=== PATIENT | female | born 2000 | race Hispanic/Latino ===

== ENCOUNTER 2024-11-27 12:50 | Emergency (ER) | payer OTHER, SELFPAY ==
[2024-11-27 13:00] VITALS: BP 128/78; PULSE 91; RESP 18; TEMP 37.5; O2SAT 100
--- NOTE | 2024-11-27 13:19 | ED.DIZZY ---
HPI - Dizziness General Chief Complaint: Dizziness Stated Complaint: Dizzy / Head pressure Time Seen by Provider: 11/27/24 13:00 Source: patient and RN notes reviewed Mode of arrival: ambulatory Limitations: no limitations History of Present Illness HPI Narrative: 24-year-old female presents Express Care complaining of sinus congestion for approximately 11 days. Patient reports a headache, sinus pressure, postnasal drip, dry cough, and dizziness. Patient reports she feels dizzy especially when she is up moving or she turns her head too quickly. Patient denies any syncope, near syncope, chest pains, difficulty breathing,, nausea, vomiting, diarrhea, sore throat, earache, runny nose, or any other symptoms. Patient has not tried any [id number] herbal symptoms. Patient denies any significant past medical history. Related Data Home Medications ?Medication ?Instructions ?Recorded ?Confirmed ?Last Taken ?Type norgestimate 0.25 mg-ethinyl tablet 11/27/24 Unknown History estradiol 0.035 mg tablet (Stacy) Allergies Allergy/AdvReac Type Severity Reaction Status Date / Time No Known Allergies Allergy Mild Verified 11/27/24 12:53 Review of Systems Review of Systems: CONSTITUTIONAL: Denies fever, chills, or sweats. EYES: Denies visual changes, redness, or discharge. ENT: Denies rhinorrhea, sore throat, or otalgia. Positive for congestion, sinus pressure. CARDIOVASCULAR: Denies chest pain, palpitations, lightheadedness, near-syncope, or edema. Positive for dizziness RESPIRATORY: Positive cough. Negative for wheezing, or Dyspnea. GASTROINTESTINAL: Denies abdominal pain, nausea, vomiting, or diarrhea. GENITOURINARY: Denies dysuria or hematuria. SKIN: Denies rash or itching. MUSCULOSKELETAL: Denies back pain, joint pain, or myalgia. NEUROLOGIC: Denies headache, numbness, loss of consciousness, focal weakness, slurred speech, facial droop, or weakness. PSYCHIATRIC: Denies anxiety or depression. All other systems reviewed are negative, except as documented in HPI. PMFSH Comments At the time of my signature, I reviewed and agree with the nursing past medical, surgical, social, and family history. There is no relevant family history pertinent to the patient complaint. Exam Narrative: GENERAL: This is a well-nourished, well-developed adult, in no apparent distress. They are non ill-appearing, nontoxic appearing. HEAD: normocephalic, atraumatic. EYES: Sclera clear/white. Conjunctiva normal. Vision is grossly intact. Extraocular movements intact. Pupils PERRLA. No nystagmus. EARS: External ears normal, auditory canals clear and without drainage, TMs normal without perforation. Hearing grossly intact. NOSE: External nose normal with no obvious nasal discharge, nasal turbinates erythematous bilaterally with exudate, no rhinorrhea. Sinus tenderness to palpation to frontal and maxillary sinuses. THROAT: Mucous membranes moist, posterior pharynx clear, without erythema or swelling. Uvula midline. Postnasal drip present. NECK: Neck supple, non-tender without lymphadenopathy, masses or thyromegaly. CARDIOVASCULAR: Regular rate and rhythm without murmurs, gallops, or rubs. RESPIRATORY: Clear to auscultation. Breath sounds equal bilaterally. No wheezes, rales, or rhonchi. SKIN: warm, Dry, intact with no suspicious lesions or rash, good texture and turgor. NEURO: awake, alert, and oriented to person, place and time. There were no obvious focal neurologic abnormalities. Cranial nerves 2-12 grossly intact. No pronator drift. No slurred speech. No facial droop. EXTREMITIES: No joint tenderness, effusion, or edema noted. Course Course Emergency Course: Portions of this record may have been created with voice recognition software Level of Care: Express Care Visit Vital Signs Vital signs: Vital Signs Temperature 99.5 F 11/27/24 13:00 Pulse Rate 91 11/27/24 13:00 Respiratory Rate 18 11/27/24 13:00 Blood Pressure 128/78 11/27/24 13:00 Pulse Oximetry 100 11/27/24 13:00 Oxygen Delivery Room Air 11/27/24 13:00 Temperature 99.5 F 11/27/24 13:00 Pulse Rate 91 11/27/24 13:00 Respiratory Rate 18 11/27/24 13:00 Blood Pressure 128/78 11/27/24 13:00 Pulse Oximetry 100 11/27/24 13:00 Oxygen Delivery Room Air 11/27/24 13:00 Reviewed MDM - Dizziness MDM Narrative Medical decision making narrative: Given length of patient's symptoms is likely she has developed a bacterial sinusitis. Will treat her with Augmentin. Patient's symptoms likely or vertigo related to the sinus infection. Will prescribe meclizine as needed for dizziness. Discussed physical exam findings. Advised supportive measures and signs/symptoms to go to the ER. Pt is appropriate for outpt treatment and f/u. Differential Diagnosis Differential diagnosis: Likely other (Sinusitis, vertigo, dizziness, vestibular disorder, upper respiratory infection) Critical Care Time Critical Care Time Critical Care Time: No Discharge Plan Discharge Clinical Impression: Dizziness Sinusitis Qualifiers: Sinusitis location: unspecified location Chronicity: acute Recurrence: non-recurrent Qualified Code(s): J01.90 - Acute sinusitis, unspecified Patient Disposition: Home Condition: Stable Instructions: Antibiotic Form, Sinusitis (ED), Vertigo (ED) Additional Instructions: Take the antibiotics as directed and complete the course even if you start to feel better. You may use a Neti pot saline rinse 3 times a day with lukewarm distilled water Continue to take Tylenol or Motrin for pain. Follow the instructions on the bottle. Use a humidifier or vaporizer at night. Take meclizine as directed for dizziness. Drink plenty of water. 8-10 glasses per day. Use flonase 2 sprays each nostril per day for 5 days then as needed Take mucinex 2 times per day and be sure to take with 8oz of water. Follow up with Primary provider in 3-5 days Please go to the ER if he develops any difficulty breathing, uncontrollable dizziness, nausea, vomiting, severe headaches, vision changes, worsening symptoms, or any other concerns Patient Language: Slovenian Prescriptions: New amoxicillin-pot clavulanate 875-125 mg tablet 1 tablet PO Q12H 7 Days Qty: 14 0RF meclizine 25 mg tablet 25 mg PO TID PRN (Reason: dizziness) Qty: 20 0RF No Action norgestimate-ethinyl estradiol [Stacy] 0.25-0.035 mg tablet Follow-up/Referrals: PHYSICIAN,ROAD CROSSING GUARD [Primary Care Provider] - Stand Alone Forms: Work/School Release IP Time of Disposition: 13:18
== END 2024-11-27 13:20 | disposition home or self-care (01) ==
DX: R42 Dizziness and giddiness (principal); J01.90 Acute sinusitis, unspecified
CPT/HCPCS: 99203; G0463

== ENCOUNTER 2024-11-30 15:11 | Emergency (ER) | payer OTHER, SELFPAY ==
[2024-11-30] VITALS (11 sets, daily range): BP systolic 120–135; BP diastolic 84–88; PULSE 103–115; RESP 16–18; TEMP 36.4–36.6; O2SAT 100
--- NOTE | 2024-11-30 19:56 | ECG_ITS ---
Test Date: 2024-11-30 20:35:11 Measurements Intervals [place] Rate: 96 P: 19 OH: 148 QRS: 76 QRSD: 97 T: 21 QT: 353 QTc: 446 Interpretive Statements SINUS RHYTHM NONSPECIFIC T-WAVE ABNORMALITY- ANTERIOR LEADS BASELINE ARTIFACT- I, II, III, AVR, AVL, AVF, V1-V6 BORDERLINE ECG No previous ECG available for comparison Electronically Signed On 11-30-2024 21:04:50 CDT by Brett Kaba D.O.
--- NOTE | 2024-11-30 19:57 | ED_ITS ---
HPI - URI/Sore Throat General Chief Complaint: Upper Respiratory Infection Stated Complaint: head pressure, being treated sinus infection Time Seen by Provider: 11/30/24 19:38 History of Present Illness HPI Narrative: 24-year-old female with reported history of headaches presents to emergency department for headache and sinus infection for about 2 weeks. Patient states 2 weeks ago she began developing dizziness, head pressure, pain to her sinuses,and sinus congestion. On 11/27/2024 she presented to urgent care for her symptoms and was prescribed Augmentin for presumed sinusitis and meclizine. She states she has been taking Augmentin as prescribed and has had some improvement in her sinus congestion and pressure but her headache remains. She describes the headache as a pressure that is over the frontal aspect of her brain and sinuses and in the top of her head. She also is endorsing dizziness that is worse when she moves her head quickly and better when she is sitting still. She has not taken her meclizine. She denies fever, chest pain, shortness of breath, cough, sore throat, otalgia. Patient denies possibility of . Related Data Home Medications ?Medication ?Instructions ?Recorded ?Confirmed ?Last Taken ?Type norgestimate 0.25 mg-ethinyl tablet 11/27/24 Unknown History estradiol 0.035 mg tablet (Stacy) Allergies Allergy/AdvReac Type Severity Reaction Status Date / Time No Known Allergies Allergy Mild Verified 11/27/24 12:53 Review of Systems 2 Review of Systems: All systems reviewed & are unremarkable except as noted in HPI and below Exam 2 Narrative: GENERAL: Well-appearing, well-nourished, and in no acute distress. HEAD: Normocephalic, atraumatic. EYES: PERRLA and EOMI. ENT: Nares clear, no rhinorrhea or epistaxis. Mucous membranes moist. Mild tenderness over the bilateral maxillary and frontal sinuses with no overlying skin changes. Bilateral TMs with serous effusion, no erythema or bulging. Normal canals. Bilateral horizontal nystagmus NECK: Supple. CHEST: Clear to auscultation. No respiratory distress. HEART: Regular rate and rhythm. No murmur heard. Normal peripheral pulses. ABDOMEN: Soft, nontender, nondistended, normal active bowel sounds. EXTREMITIES: Normal range of motion. No edema. SKIN: Warm, dry, no rash. NEURO: No focal deficits. Alert and oriented x4. Cranial nerves 2-12 intact. Strength 5/5 in BUE and BLE. Sensation intact throughout. Normal [id number]. No pronator drift. Course Vital Signs Vital signs: Vital Signs Temperature 97.5 F L 11/30/24 15:35 Pulse Rate 115 H 11/30/24 15:35 Respiratory Rate 16 11/30/24 15:35 Blood Pressure 133/84 11/30/24 15:35 Pulse Oximetry 100 11/30/24 15:35 Oxygen Delivery Room Air 11/30/24 15:35 Temperature 97.9 F 11/30/24 19:29 Pulse Rate 103 H 11/30/24 19:29 Respiratory Rate 18 11/30/24 19:29 Blood Pressure 135/85 11/30/24 19:29 Pulse Oximetry 100 11/30/24 19:29 Oxygen Delivery Room Air 11/30/24 19:29 MDM - URI/Sore Throat MDM Narrative Medical decision making narrative: 24-year-old female with reported history of headaches presents to emergency department for sinusitis and headaches. See HPI for further history. Triage vitals with tachycardia 115 which is since improved to 103 on my evaluation. Patient is afebrile and nontoxic appearing with no focal neurologic deficits. She does have tenderness over the frontal and maxillary sinuses on exam, bilateral serous effusions which are likely the source of her described vertigo. She is otherwise well appearing and resting comfortably in exam bed. EKG shows normal sinus rhythm with a rate of 96 bpm, normal [place] interval, normal QRS duration, normal QTC, no ST elevations or depressions. CBC with leukocytosis of 12.4, normal hemoglobin. Chemistries are unremarkable. Patient received IV fluids and headache cocktail with improvement in symptoms. Suspect her headache is due to sinusitis. She is reporting improvement since being on the Augmentin, advised her to continue taking this medication as directed. Advised her to take meclizine p.r.n. for vertigo. Additionally patient states she has Flonase at home which I encouraged her to use. Will provide ibuprofen and Tylenol for headaches. Advised follow-up with PCP. She is agreeable with the plan and verbalized understanding. Discharged in stable condition. Lab Data 11/30/24 20:17 11/30/24 20:17 Labs: Lab Results 11/30/24 Range/Units 20:17 WBC 12.4 H (4.5-10.0) K/mm3 RBC 5.05 (4.2-5.4) M/mm3 Hgb 12.5 (12.0-15.0) g/dL Hct 39.8 (37.0-47.0) % MCV 78.8 L (80-100) fl MCH 24.8 L (26-34) pg MCHC 31.4 L (32-36) g/dl RDW 14.2 (11.5-14.5) % Plt Count 522 H (150-375) k/mm3 MPV 8.8 (7.4-10.4) fl Immature Gran % (Auto) 0.4 (0-0.5) % Neut % (Auto) 67.4 (45.5-73.1) % Lymph % (Auto) 24.2 (18.3-44.2) % [place] % (Auto) 7.3 (2.6-8.5) % Eos % (Auto) 0.5 (0-4.4) % Baso % (Auto) 0.2 (0.2-1.2) % Lymph # (Auto) 3.01 (0.9-3.2) K/mm3 [place] # (Auto) 0.9 H (0.1-0.6) K/mm3 Eos # (Auto) 0.1 (0-0.3) K/mm3 Baso # (Auto) 0.0 (0.0-0.1) K/mm3 Abs Immat Gran (auto) 0.05 H (0.00-0.031) K/mm3 Absolute Neuts (auto) 8.4 H (1.3-6.7) K/mm3 Absolute Nucleated RBC 0.000 (0.0-0.012) K/mm3 Nucleated RBC % 0.0 (0.0-0.2) % Sodium 136 L (137-145) mmol/L Potassium 4.3 (3.4-5.0) mmol/L Chloride 103 (98-107) mmol/L Carbon Dioxide 24 (22-30) mmol/L Anion Gap 9 (4-12) mmol/L BUN 10 (7-17) mg/dL Creatinine 0.67 L (0.7-1.0) mg/dL Estim Creat Clear Calc 110 ml/min Estimated GFR > 60 (59 - ) Glucose 98 (65-110) mg/dL Calcium 9.6 (8.4-10.2) mg/dL Total Bilirubin 0.3 (0.2-1.3) mg/dL AST 30 (14-36) U/L ALT 19 (6-35) U/L Alkaline Phosphatase 116 (38-126) U/L Total Protein 9.1 H (6.3-8.2) g/dL Albumin 4.7 (3.5-5.1) g/dL Discharge Plan Discharge Clinical Impression: Sinusitis Qualifiers: Sinusitis location: frontal Chronicity: acute Recurrence: not specified as recurrent Qualified Code(s): J01.10 - Acute frontal sinusitis, unspecified Headache Qualifiers: Headache type: tension-type Headache chronicity pattern: unspecified pattern I ntractability: not intractable Qualified Code(s): G44.209 - Tension-type headache, unspecified, not intractable Otitis media, serous Qualifiers: Chronicity: unspecified Laterality: bilateral Qualified Code(s): H65.93 - Unspecified nonsuppurative otitis media, bilateral Patient Disposition: Home Condition: Stable Instructions: Antibiotic Form, Sinusitis (ED), Fluid In The Ear (Serous Otitis Media) (ED) Additional Instructions: Please continue taking the antibiotics that were prescribed. Take meclizine as needed for dizziness. Use the Flonase as directed at home. Take Tylenol and ibuprofen as needed for headaches. Follow-up closely with her primary care provider. Return to the emergency department if you develop fever, worsening headache, vision changes, focal numbness or weakness, or other concerning symptoms. Patient Language: Peruvian Prescriptions: New acetaminophen 500 mg capsule 500 mg PO Q6H PRN (Reason: pain) Qty: 14 0RF ibuprofen 800 mg tablet 800 mg PO TID PRN (Reason: pain) Qty: 20 0RF No Action norgestimate-ethinyl estradiol [Stacy] 0.25-0.035 mg tablet amoxicillin-pot clavulanate 875-125 mg tablet 1 tablet PO Q12H 7 Days Qty: 14 0RF meclizine 25 mg tablet 25 mg PO TID PRN (Reason: dizziness) Qty: 20 0RF Follow-up/Referrals: PHYSICIAN,APARTMENT MAINTENANCE WORKER [Primary Care Provider] - Keith Chau MD [Physician] -
--- OUTSIDE RECORDS SUMMARY | 2024-11-30 19:59 | XMS_ITS | Clinical Summary ---
Author Organization [facility] Address [facility] [place] [address] Care Team Providers Care Vamp Seamer Name Role Phone Carie Greene MD Primary Care Provider [phone] Allergies No known active allergies Social History Tobacco Use Types Packs/Day Years Used Date Smoking Tobacco: Never Smokeless Tobacco: Never Alcohol Use Standard Drinks/Week Comments No 0 (1 standard drink = 0.6 oz pur e alcohol) Comments No Sex and Gender Information Value Date Recorded Sex Assigned at Not on file Legal Sex Female 8:08 AM CDT Gender Identity Not on file Sexual Orientation Not on file Last Filed Vital Signs Vital Sign Reading Time Taken Comments Blood Pressure 121/62 12/21/2017 10:11 AM CDT Pulse 104 12/21/2017 10:11 AM CDT Temperature 37 C (98.6 F) 12/21/2017 8:12 AM CDT Respiratory Rate 16 12/21/2017 10:11 AM CDT Oxygen Saturation 100% 12/21/2017 10:11 AM CDT Inhaled Oxygen Concentration - - Weight 61.8 kg (136 lb 3.9 oz) 12/21/2017 8:12 A M CDT Height 162.6 cm (5' 4) 12/21/2017 8:12 AM CDT Body Mass Index 23.39 12/21/2017 8:12 AM CDT Plan of Treatment Health Maintenance Due Date Last Done Comments Cervical Cancer Screening Pa p Smear (Age 21 to 29) Every 3 Years 1999 Cervical Cancer Screening 1999 Annual Physical 2002 HPV Vaccines (1 - 3-dose series) 2014 Hepatitis C 2017 DTaP, Tdap and Td Vaccines ( 1 - Tdap) 2018 Hepatitis B Vaccines (1 of 3 - 19+ 3-dose series) 2018 COVID-19 Vaccine (1 - 2023-2 5 season) 2023 Meningococcal B Vaccine Aged Out No l onger eligible based on patient's age to complete this topic Meningococcal Vaccine Aged Out No reji tobias eligible based on patient's age to complete this topic Pneumococcal Vaccine: Pediat rics (0 to 5 Years) and At-Risk Patients (6 to 49 Years) Aged Out No longer eligible b ased on patient's age to complete this topic RSV Immunizations Under 20 Months Aged Out No longer eligible based on patient's age to complete this topic Insurance [employer] Care Teams Vamp Seamer Relationship Specialty Start Date End Date Carie Greene MD [address] [address] PCP - General FAMILY PRACTICE 12/21/17
[2024-11-30] MEDS: SODIUM CHLORIDE 0.9% IV 1,000 ML 999 ML IV CONT (20:18)
[2024-11-30] MEDS: PROCHLORPERAZINE EDISYLATE 10 MG/2 ML VIAL IV PUSH (20:19)
[2024-11-30] MEDS: KETOROLAC 30 MG/ML VIAL (*BKC) IV PUSH (20:21)
[2024-11-30 20:32] LABS: Alanine Aminotransferase 19 U/L (6-35); Albumin Level 4.7 g/dL (3.5-5.1); Alkaline Phosphatase 116 U/L (38-126); Anion Gap 9 mmol/L (4-12); Aspartate Amino Transferase 30 U/L (14-36); Bilirubin,Total 0.3 mg/dL (0.2-1.3); Blood Urea Nitrogen 10 mg/dL (7-17); Calcium 9.6 mg/dL (8.4-10.2); Carbon Dioxide 24 mmol/L (22-30); Chloride 103 mmol/L (98-107); Estimated CRCL calculation 110 ml/min; Estimated Glomerular Filt Rate > 60; Glucose 98 mg/dL (65-110); Potassium 4.3 mmol/L (3.4-5.0); Sodium 136 mmol/L (137-145); Total Protein 9.1 g/dL (6.3-8.2)
[2024-11-30 20:38] LABS: Hematocrit 39.8 % (37.0-47.0); Hemoglobin 12.5 g/dL (12.0-15.0); Immature Granulocyte Percent A 0.4 % (0-0.5); Lymphocytes Absolute Auto 3.01 K/mm3 (0.9-3.2); Mean Corpuscular HGB Conc 31.4 g/dl (32-36); Mean Corpuscular Hemoglobin 24.8 pg (26-34); Mean Corpuscular Volume 78.8 fl (80-100); Nucleated Red Blood Cells Absolute Auto 0.000 K/mm3 (0.0-0.012); Nucleated Red Blood Cells Perc 0.0 % (0.0-0.2); Platelet Count Result 522 k/mm3 (150-375); Red Blood Count 5.05 M/mm3 (4.2-5.4); White Blood Count 12.4 K/mm3 (4.5-10.0)
[2024-11-30] MEDS: SODIUM CHLORIDE 0.9% IV 200 ML 999 ML (21:00)
== END 2024-11-30 21:29 | disposition home or self-care (01) ==
PROVIDERS: Emergency Provider Physician Assistant
DX: J01.10 Acute frontal sinusitis, unspecified (principal); G44.209 Tension-type headache, unspecified, not intractable; H65.93 Unspecified nonsuppurative otitis media, bilateral
CPT/HCPCS: 36415; 80053; 85025; 93005; 96361; 96374; 96375; 99284; J0780; J1200; J1885; J7030

== ENCOUNTER 2024-12-05 11:48 | Emergency (ER) | payer OTHER, SELFPAY ==
[2024-12-05 11:56] VITALS: BP 132/73; PULSE 90; RESP 16; TEMP 36.6; O2SAT 100
--- NOTE | 2024-12-05 12:43 | ED.URI ---
HPI - URI/Sore Throat General Chief Complaint: Upper Respiratory Infection Stated Complaint: body aches/pressure in head Source: patient and RN notes reviewed Mode of arrival: ambulatory Limitations: no limitations History of Present Illness HPI Narrative: 24-year-old female presents Express Care complaining of headache and congestion has been going to ongoing for the last 3 weeks. Patient was recently seen here the Express Care was treated for sinusitis. Patient then went to the ER for persistent headaches. She is diagnosed with serous otitis media was recommended to use nasal spray and antihistamines. Patient stabbed using Flonase because she got a headache. Patient has not been taking an antihistamine as directed. Patient follow-up with her PCP this week and was told to continue doing allergy medications. Patient reports having postnasal drip and still feeling like her ears are full of fluid. Patient denies any dizziness or loss of consciousness, chest pain, difficulty breathing, cough, fevers, body aches, chills or any other symptoms. Related Data Home Medications ?Medication ?Instructions ?Recorded ?Confirmed ?Last Taken ?Type norgestimate 0.25 mg-ethinyl tablet 11/27/24 Unknown History estradiol 0.035 mg tablet (Stacy) Allergies Allergy/AdvReac Type Severity Reaction Status Date / Time No Known Allergies Allergy Mild Verified 12/05/24 11:49 Review of Systems Review of Systems: CONSTITUTIONAL: Denies fever, chills, or sweats. EYES: Denies visual changes, redness, or discharge. ENT: Denies rhinorrhea, sore throat, or otalgia. Positive for congestion and fluid in ears. CARDIOVASCULAR: Denies chest pain, palpitations, dizziness, or edema. RESPIRATORY: Denies cough or dyspnea. GASTROINTESTINAL: Denies abdominal pain, nausea, vomiting, or diarrhea. GENITOURINARY: Denies dysuria or hematuria. SKIN: Denies rash or itching. MUSCULOSKELETAL: Denies back pain, joint pain, or myalgia. NEUROLOGIC: Denies headache, numbness, loss of consciousness, Or weakness. PSYCHIATRIC: Denies anxiety or depression. All other systems reviewed are negative, except as documented in HPI. PMFSH Comments At the time of my signature, I reviewed and agree with the nursing past medical, surgical, social, and family history. There is no relevant family history pertinent to the patient complaint. Exam Narrative: GENERAL: This is a well-nourished, well-developed adult, in no apparent distress. They are non ill-appearing, nontoxic appearing. HEAD: normocephalic, atraumatic. EYES: Sclera clear/white. Conjunctiva normal. Vision is grossly intact. Extraocular movements intact EARS: External ears normal, auditory canals clear and without drainage, TMs pearly lott with good cone line, no redness or swelling. Bilateral ear effusions present.. Hearing grossly intact. NOSE: External nose normal with no obvious nasal discharge, nasal turbinates are boggy, no rhinorrhea. THROAT: Mucous membranes moist, posterior pharynx clear, without erythema or swelling. Uvula midline. Postnasal drip present. NECK: Neck supple, non-tender without lymphadenopathy, masses or thyromegaly. CARDIOVASCULAR: Regular rate and rhythm without murmurs, gallops, or rubs. RESPIRATORY: Clear to auscultation. Breath sounds equal bilaterally. No wheezes, rales, or rhonchi. SKIN: warm, Dry, intact with no suspicious lesions or rash, good texture and turgor. NEURO: awake, alert, and oriented to person, place and time. There were no obvious focal neurologic abnormalities. EXTREMITIES: No joint tenderness, effusion, or edema noted. Course Course Emergency Course: Portions of this record may have been created with voice recognition software Level of Care: Express Care Visit Vital Signs Vital signs: Vital Signs Temperature 97.9 F 12/05/24 11:56 Pulse Rate 90 12/05/24 11:56 Respiratory Rate 16 12/05/24 11:56 Blood Pressure 132/73 12/05/24 11:56 Pulse Oximetry 100 12/05/24 11:56 Oxygen Delivery Room Air 12/05/24 11:56 Temperature 97.9 F 12/05/24 11:56 Pulse Rate 90 12/05/24 11:56 Respiratory Rate 16 12/05/24 11:56 Blood Pressure 132/73 12/05/24 11:56 Pulse Oximetry 100 12/05/24 11:56 Oxygen Delivery Room Air 12/05/24 11:56 Reviewed MDM - URI/Sore Throat MDM Narrative Medical decision making narrative: Appears patient has persistent symptoms are related to sinus congestion and allergies. Will send over a prescription of Nasacort along with azelastine spray to help with symptoms. With persistent issues of with congestion will prescribe a short course of a Medrol Dosepak. Also recommend antihistamine recommended to take a daily Zyrtec or Claritin of her choice. Education provided to patient about using these medications persistently to achieve relief. Advised patient have close follow-up with PCP. Discussed physical exam findings. Advised supportive measures and signs/symptoms to go to the ER. Pt is appropriate for outpt treatment and f/u. Differential Diagnosis Differential diagnosis: Likely upper respiratory infection, otitis media, sinusitis and other (Allergic rhinitis) Critical Care Time Critical Care Time Critical Care Time: No Discharge Plan Discharge Clinical Impression: Allergic rhinitis Qualifiers: Allergic rhinitis trigger: unspecified Allergic rhinitis seasonality: unspecified Qualified Code(s): J30.9 - Allergic rhinitis, unspecified Patient Disposition: Home Condition: Stable Instructions: Allergies (ED) Additional Instructions: Take the Medrol Dosepak as directed. You may use a Neti pot saline rinse 3 times a day with lukewarm distilled water Continue to take Tylenol or Motrin for pain. Follow the instructions on the bottle. Use a humidifier or vaporizer at night. Drink plenty of water. 8-10 glasses per day. You may also take it daily Zyrtec or Claritin for the next 2 weeks. Use Nasacort 2 sprays each nostril once a day for the next 2 weeks. Use azelastine spray 2 sprays each nostril once a day for the next 2 weeks. If you continue to have relief with these nasal sprays antihistamines you may continue to use them daily after 2 weeks. Follow up with Primary provider in 3-5 days Please go to the ER if he develops any difficulty breathing, worsening symptoms, or any other concerns Patient Language: Sri Lankan Prescriptions: New azelastine 205.5 mcg (0.15 %) spray,non-aerosol 2 spray intranasal DAILY 14 Days Qty: 23 0RF Rx Instructions: administer into each nostril triamcinolone acetonide [Nasacort] 55 mcg aerosol,spray 2 spray intranasal DAILY 14 Days Qty: 16.9 0RF Rx Instructions: administer into each nostril methylprednisolone 4 mg tablets,dose pack See Rx Instructions .ROUTE .COMPLEX Qty: 21 0RF Rx Instructions: for 6 days No Action norgestimate-ethinyl estradiol [Stacy] 0.25-0.035 mg tablet amoxicillin-pot clavulanate 875-125 mg tablet 1 tablet PO Q12H 7 Days Qty: 14 0RF meclizine 25 mg tablet 25 mg PO TID PRN (Reason: dizziness) Qty: 20 0RF acetaminophen 500 mg capsule 500 mg PO Q6H PRN (Reason: pain) Qty: 14 0RF ibuprofen 800 mg tablet 800 mg PO TID PRN (Reason: pain) Qty: 20 0RF Follow-up/Referrals: PHYSICIAN,RADIO TIME SALESPERSON [Primary Care Provider] - Time of Disposition: 12:37
== END 2024-12-05 12:58 | disposition home or self-care (01) ==
DX: J30.9 Allergic rhinitis, unspecified (principal)
CPT/HCPCS: 99213; G0463

== ENCOUNTER 2025-04-15 10:40 | Outpatient (CLI) | payer OTHER, SELFPAY ==
--- NOTE | 2025-04-15 10:55 | CY_PTH ---
PATIENT: Mckenzie Wang LOC: [facility] U#:[id number] AGE/SX: 25/F ROOM: RE04/15/[address]: Kole Jenkins MD : 2000 BED: DIS: 04/15/2025 SPEC #: [id number] RECD: 04/15/25 11:33 STATUS: JEFF REQ #: [id number] ROSALEE: 04/15/25 10:[address]: Kole Jenkins DEPT: [facility] Cytology RECD BY: Josefina Campos ENTERED: 04/15/25 11:34 SP TYPE: Cytology OTHR DR: PRESS ROOM SUPERVISOR PHYSICIAN Tissues: A - Flow Procedures: Flow Cytometry
[2025-04-15 11:11] LABS: Hematocrit 37.3 % (37.0-47.0); Hemoglobin 12.2 g/dL (12.0-15.0); Immature Granulocyte Percent A 0.4 % (0-0.5); Lymphocytes Absolute Auto 4.47 K/mm3 (0.9-3.2); Mean Corpuscular HGB Conc 32.7 g/dl (32-36); Mean Corpuscular Hemoglobin 27.1 pg (26-34); Mean Corpuscular Volume 82.7 fl (80-100); Nucleated Red Blood Cells Absolute Auto 0.000 K/mm3 (0.0-0.012); Nucleated Red Blood Cells Perc 0.0 % (0.0-0.2); Platelet Count Result 496 k/mm3 (150-375); Red Blood Count 4.51 M/mm3 (4.2-5.4); White Blood Count 14.2 K/mm3 (4.5-10.0)
--- OUTSIDE RECORDS SUMMARY | 2025-04-15 11:40 | XMS_ITS | Clinical Summary ---
Author Organization [facility] Mauricevenicemariah Ashby Address [address] [place] [address] Care Team Providers Care Dado Operator Name Role Phone Keith Chau MD Primary Care Provider [phone] Allergies No known active allergies Medications ibuprofen (MOTRIN) 800 mg tablet Take 400 mg by mouth every 6 hours as needed. 11/30/2024 Active meclizine (ANTIVERT) 25 mg tablet Take 25 mg by mouth 3 times daily as needed. Active norgestimate-eth inyl estradioL (Stacy) 0.25 mg-35 mcg tablet Take 1 Tablet by mouth daily. Active ondansetron (ZOFRAN) 4 mg Tablet Take 4 mg by mouth every 8 hours as needed. 03/26/2025 Active rimegepant 75 mg Tablet, Rapid Dissolve Take 75 mg by mouth 1 time daily as needed. 01/26/2025 Active cetirizine (ZyrTEC) 5 mg tablet Take 5 mg by mouth daily. Active Active Problems Problem Noted Date Diagnosed Date Vertigo 04/05/2025 Anemia, chronic disease 04/05/2025 Other headache syndrome 04/05/2025 Nausea 04/05/2025 Encounters Date Type Department Care Team Description 04/06/2025 External Device Data STL ABSTRACTION Provider, Abstract 04/06/2025 External Device Data ST[facility] ABSTRACTION Provider, Abstract 04/06/2025 External Device Data STL ABSTRACTION Provider, Abstract 04/05/2025 10:30 AM SOLUTION SPEC Office Visit [facility] - [place] [address] [place] [address] Kole Jenkins MD Vertigo (Primary Dx); Anemia, chronic disease; Other headache syndrome; Nausea; Leukocytosis, unspecified type from Last 3 Months Family History Medical History Relation Name Comments No Known Problems Brother 1 No Known Problems Brother 2 Diabetes Father No Known Problems Mother No Known Problems Sister 1 No Known Problems Sister 2 No Known Problems Sister 3 Relation Name Status Comments Brother 1 Alive Brother 2 Alive Father Alive Mother Alive Sister 1 Alive Sister 2 Alive Sister 3 Alive Social History Tobacco Use Types Packs/Day Years Used Date Smoking Tobacco: Never Assessed Comments Unknown Sex and Gender Information Value Date Recorded Sex Assigned at Not on file Legal Sex Female 10:07 AM CDT Gender Identity Not on file Sexual Orientation Not on file Last Filed Vital Signs Vital Sign Reading Time Taken Comments Blood Pressure 132/83 04/05/2025 10:25 AM SOLUTION SPEC Pulse 98 04/05/2025 10:25 AM SOLUTION SPEC Temperature 37.6 C (99.7 F) 04/05/2025 10:25 AM SOLUTION SPEC Respiratory Rate 14 04/05/2025 10:25 AM SOLUTION SPEC Oxygen Saturation 96% 04/05/2025 10:25 AM SOLUTION SPEC Inhaled Oxygen Concentration - - Weight 81.6 kg (180 lb) 04/05/2025 10:25 AM SOLUTION SPEC Height 162.6 cm (5' 4) 04/05/2025 10:25 AM SOLUTION SPEC Body Mass Index 30.9 04/05/2025 10:25 AM SOLUTION SPEC Plan of Treatment Upcoming Encounters Date Type Department Care Team (Late st Contact Info) Description 04/19/2025 4:00 PM SOLUTION SPEC Telephone Check Up [facility] [place] [address] [address] [address] Otis Chatman MD [address] [place] [phone] Health Maintenance Due Date Last Done Comments HPV VACCINES (1 - 3-dose series) 2014 DTAP/TDAP/TD VACCINES (1 - Tdap) 2018 HEPATITIS B VACCINES (1 of 3 - 19+ 3-dose series) 03/01 CERVICAL CANCER SCREENING 2020 HPV/Cotest (21-29) 2020 PAP SMEAR 2020 Preventative Visit- Commercial 04/29/2024 INFLUENZA VACCINE (#1) [address] [facility] [id number] [facility] Address: [address] [place] [address] [place] Care Teams Dado Operator Relationship Specialty Start Date End Date Keith Chau MD [address] [place] [phone] PCP - General Family Practice 02/15/25
[2025-04-15 11:54] LABS: Alanine Aminotransferase 18 U/L (6-35); Albumin Level 4.4 g/dL (3.5-5.1); Alkaline Phosphatase 97 U/L (38-126); Anion Gap 8 mmol/L (4-12); Aspartate Amino Transferase 27 U/L (14-36); Bilirubin,Total 0.4 mg/dL (0.2-1.3); Blood Urea Nitrogen 12 mg/dL (7-17); CRP 2.0 mg/dL (<1.0); Calcium 9.1 mg/dL (8.4-10.2); Carbon Dioxide 26 mmol/L (22-30); Chloride 106 mmol/L (98-107); Estimated Glomerular Filt Rate > 60; Glucose 82 mg/dL (65-110); Potassium 3.8 mmol/L (3.4-5.0); Sodium 140 mmol/L (137-145); Total Protein 8.2 g/dL (6.3-8.2)
== END 2025-04-15 10:41 | disposition home or self-care (01) ==
PROVIDERS: Visit Provider Internal Medicine Hematology & Oncology
DX: D72.829 Elevated white blood cell count, unspecified (principal)
CPT/HCPCS: 36415; 80053; 85025; 85652; 86140; 88184